=== PATIENT | male | born 1935 | race Caucasian/White ===

== ENCOUNTER → 2018-03-19 | Outpatient (CLI) | payer OTHER, MEDICARE | LOC: FIMAGING 12:16 | PROVIDERS: ATTEND Internal Medicine Cardiovascular Disease | DX: J90 Pleural effusion, not elsewhere classified (principal) ==

== ENCOUNTER → 2018-03-19 | Outpatient (CLI) | payer OTHER, MEDICARE | LOC: BHFA 11:30 | PROVIDERS: ATTEND Internal Medicine Cardiovascular Disease | DX: R55 Syncope and collapse (principal); I47.2 Ventricular tachycardia ==

== ENCOUNTER → 2018-03-20 | Outpatient (CLI) | payer OTHER, MEDICARE | LOC: BHFA 15:00 | PROVIDERS: ATTEND Internal Medicine Cardiovascular Disease | DX: R55 Syncope and collapse (principal); I42.9 Cardiomyopathy, unspecified ==

== ENCOUNTER 2018-03-25 07:47 | Emergency (ER) | payer OTHER, MEDICARE ==
--- NOTE | 2018-03-25 07:53 | EDPHY ---
H & P Time Seen by Provider: 03/25/18 07:49 HPI/ROS: CHIEF COMPLAINT: Dyspnea HISTORY OF PRESENT ILLNESS: The patient presents the ED with increasing dyspnea over the past several weeks. The patient reports he primarily notices dyspnea on exertion. He does have symptoms which occur at rest. This morning he was feeling short of breath and contacted paramedics. The patient was brought in by ambulance with stable vital signs. He has no complaints of chest pain. Patient tells me he does have a history of arrhythmia. He has a history of syncope and also an AICD. The patient does report an increasing cough over the past several days. He denies fever or productive sputum. The patient denies any headache, numbness or weakness. REVIEW OF SYSTEMS: A comprehensive 10 point review of systems is otherwise negative aside from elements mentioned in the history of present illness. 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 - hip fracture and hypercalcemia, ppm - Social History Smoking Status: Former smoker - Physical Exam Exam: General Appearance: Thin elderly male, no acute distress Eyes: Pupils equal and round no pallor or injection ENT, Mouth: Mucous membranes moist Respiratory: There are no retractions, lungs are clear to auscultation Cardiovascular: Regular rate and rhythm Gastrointestinal: Abdomen is soft and nontender, no masses, bowel sounds normal Neurological: 5/5 strength all 4 extremities Skin: Warm and dry, no rashes Extremities: symmetrical, full range of motion Psychiatric: Patient is oriented X 3, there is no agitation Constitutional: Initial Vital Signs Temperature (C) 37.0 C 03/25/18 08:01 Heart Rate 76 03/25/18 08:01 Respiratory Rate 18 03/25/18 08:01 Blood Pressure 137/96 H 03/25/18 08:01 O2 Sat (%) 97 03/25/18 08:01 O2 Delivery Mode Room Air Allergies/Adverse Reactions: No Known Allergies Allergy (Unverified 03/25/18 07:59) Home Medications: Medication Instructions Recorded Eliquis 03/25/18 Lasix 03/25/18 Metoprolol Succinate 03/25/18 POTASSIUM Cl (KCl) 03/25/18 Medical Decision Making - Diagnostics EKG Interpretation: EKG: Complete interpretation has been separately recorded in the [facility] archive. Summary impression: Sinus rhythm, rate 80, inferior Q-waves, IVCD Imaging Results: Imaging Impressions Chest X-Ray 03/25/18 07:59 Impression: Mild interstitial edema, small bilateral pleural effusions, and bibasilar atelectasis may be a manifestation of early/mild CHF versus manifestation of viral pneumonitis. Head CT 03/25/18 09:50 Impression: 1. Mild atrophy. 2. No acute hemorrhage, hydrocephalus, or mass effect. 3. Cerebrovascular atherosclerosis. 4. No definite acute infarct. 5. Moderate microvascular ischemic gliosis. 6. Consider MRI of the brain, if there is continued clinical concern. Findings and recommendations discussed with Emergency Department physician, Saurabh Sue at 10:40 hour, 03/25/2018. Final report concurs with initial preliminary interpretation. ED Course/Re-evaluation: ED course: I reviewed the patient's outpatient records including an echocardiogram from February 2018 which demonstrated an ejection fraction of 20-25% and evidence of diastolic dysfunction. The patient is currently on Eliquis and metoprolol. He does have a history of a documented atrial arrhythmia last month. The patient was seen by his integrated specialist on March 20 and started on Lasix and potassium supplementation. Additional history was obtained from the patient's [id number] who reports he has been quite confused since starting new medications. He reportedly was confused as to which medications he should take versus which medications he should be given to his dog. Patient does endorse some symptoms of increasing general confusion over the past several months. The patient denies any history of fall or trauma. He was recently anticoagulated for his arrhythmia. CT scan of the brain demonstrates no evidence of intracranial hemorrhage or mass. The patient was monitored in the emergency department for some time. He is stable hemodynamically. The patient was seen by case management. He is eligible for a increased level of care at his assisted living facility. They have made arrangements to put this into place. I do feel the patient is safe for discharge at this point time. It is reasonable to have him begin potassium and Lasix as recommended by his integrated specialist. The patient has been instructed to return to the ED for marked mental status changes, fever, progressive shortness of breath or other concerns. Patient's urinalysis demonstrates no evidence of an infection. Differential Diagnosis: Differential diagnosis considered includes congestive heart failure, dehydration , metabolic abnormality, occult arrhythmia, cardiomyopathy, urinary tract infection, pneumonia - Data Points Laboratory Results: Laboratory Results 03/25/18 08:40 03/25/18 08:40 03/25/18 03/25/18 03/25/18 10:41 08:40 08:40 WBC RBC Hgb Hct MCV MCH MCHC RDW Plt Count MPV Neut % (Auto) Lymph % (Auto) [place] % (Auto) Eos % (Auto) Baso % (Auto) Nucleat RBC Rel Count Absolute Neuts (auto) Absolute Lymphs (auto) Absolute Monos (auto) Absolute Eos (auto) Absolute Basos (auto) Absolute Nucleated RBC Immature Gran % Immature Gran # PT 17.0 SEC H SEC (12.0-15.0) INR 1.37 H (0.83-1.16) Sodium 142 mEq/L mEq/L (135-145) Potassium 4.5 mEq/L mEq/L (3.3-5.0) Chloride 110 mEq/L mEq/L (97-110) Carbon Dioxide 24 mEq/l mEq/l (22-31) Anion Gap 8 mEq/L mEq/L (6-14) BUN 22 mg/dL mg/dL (7-23) Creatinine 0.9 mg/dL mg/dL (0.7-1.3) Estimated GFR > 60 Glucose 101 mg/dL H mg/dL (70-100) Calcium 9.1 mg/dL mg/dL (8.5-10.4) Troponin I 0.041 ng/mL H ng/mL (0.000-0.034) NT-Pro-B Natriuret Pep 6650 pg/mL H pg/mL (0-450) Urine Color YELLOW Urine Appearance CLEAR Urine pH 5.0 (5.0-7.5) Ur Specific [place] 1.028 (1.002-1.030) Urine Protein 1+ H (NEGATIVE) Urine Ketones 1+ H (NEGATIVE) Urine Blood NEGATIVE (NEGATIVE) Urine Nitrate NEGATIVE (NEGATIVE) Urine Bilirubin NEGATIVE (NEGATIVE) Urine Urobilinogen NEGATIVE EU EU (0.2-1.0) Ur Leukocyte Esterase NEGATIVE (NEGATIVE) Urine RBC NONE SEEN /hpf /hpf (0-3) Urine WBC 1-3 /hpf /hpf (0-3) Ur Epithelial Cells NONE SEEN /lpf /lpf (NONE-1+) Urine Mucus 1+ /lpf /lpf (NONE-1+) Urine Glucose NEGATIVE (NEGATIVE) 03/25/18 08:40 WBC 9.89 10^3/uL H 10^3/uL (3.80-9.50) RBC 4.67 10^6/uL 10^6/uL (4.40-6.38) Hgb 14.4 g/dL g/dL (13.7-17.5) Hct 43.2 % % (40.0-51.0) MCV 92.5 fL fL (81.5-99.8) MCH 30.8 pg pg (27.9-34.1) MCHC 33.3 g/dL g/dL (32.4-36.7) RDW 13.7 % % (11.5-15.2) Plt Count 213 10^3/uL 10^3/uL (150-400) MPV 9.2 fL fL (8.7-11.7) Neut % (Auto) 80.8 % H % (39.3-74.2) Lymph % (Auto) 10.1 % L % (15.0-45.0) Waldo % (Auto) 7.6 % % (4.5-13.0) Eos % (Auto) 0.9 % % (0.6-7.6) Baso % (Auto) 0.3 % % (0.3-1.7) Nucleat RBC Rel Count 0.0 % % (0.0-0.2) Absolute Neuts (auto) 7.99 10^3/uL H 10^3/uL (1.70-6.50) Absolute Lymphs (auto) 1.00 10^3/uL 10^3/uL (1.00-3.00) Absolute Monos (auto) 0.75 10^3/uL 10^3/uL (0.30-0.80) Absolute Eos (auto) 0.09 10^3/uL 10^3/uL (0.03-0.40) Absolute Basos (auto) 0.03 10^3/uL 10^3/uL (0.02-0.10) Absolute Nucleated RBC 0.00 10^3/uL 10^3/uL (0-0.01) Immature Gran % 0.3 % % (0.0-1.1) Immature Gran # 0.03 10^3/uL 10^3/uL (0.00-0.10) PT INR Sodium Potassium Chloride Carbon Dioxide Anion Gap BUN Creatinine Estimated GFR Glucose Calcium Troponin I NT-Pro-B Natriuret Pep Urine Color Urine Appearance Urine pH Ur Specific [place] Urine Protein Urine Ketones Urine Blood Urine Nitrate Urine Bilirubin Urine Urobilinogen Ur Leukocyte Esterase Urine RBC Urine WBC Ur Epithelial Cells Urine Mucus Urine Glucose Departure - Departure Disposition: Home, Routine, Self-Care Clinical Impression: Dyspnea, Cardiomyopathy Condition: Good Instructions: Dyspnea (ED) Additional Instructions: 1. Please take medications as recommended by Dr. Mehta. 2. Please follow-up with your primary care provider as scheduled. 3. Please return to the emergency department for increased chest pain, shortness of breath, increasing confusion or other concerns. Referrals: Juan David Mehta MD [Medical Doctor] - As per Instructions
--- NOTE | 2018-03-25 08:57 | CPEKG ---
Test Reason : OPEN Blood Pressure : / mmHG Vent. Rate : 080 BPM Atrial Rate : 083 BPM P-R Int : 239 ms QRS Dur : 133 ms QT Int : 440 ms P-R-T Axes : -36 -69 067 degrees QTc Int : 508 ms Sinus rhythm Multiple premature complexes, vent & supraven Prolonged CT interval IVCD, consider atypical RBBB Inferior infarct, old Consider anterior infarct Confirmed by Saurabh Sue ([id number]) on 03/25/2018 8:57:12 AM Referred By: Confirmed By:Saurabh Sue
[2018-03-25 09:00] LABS: PLATELET COUNT 213 10^3/uL (150-400)
[2018-03-25 09:08] LABS: INR 1.37 (0.83-1.16)
--- NOTE | 2018-03-25 12:17 | ASMTCMCOM ---
CM Note CM Note Notes: PT im FED with increased shortness of breath over the last several weeks. He reported having several recent procedures which has created some confusion with medication management as well as feeling stable on his feet. Pt was seen at the request of ED MD Sue for possible in home health care services. Pt lives at [place] [facility] and he is accompanied by his sister-in law Damaris. This SW spoke with Maggi ([facility] of [facility]) who provided information for home health care services and coordinator Alexandra. This SW spoke with Alexandra ([phone]) and referral was sent through [facility]. Pt with be scheduled for a full evaluation for services. Damaris was provided with follow up phone number. Date Signed: 03/25/2018 12:16 PM Electronically Signed By:Murtaza Robledo LCSW
[2018-03-25 12:46] VITALS: BP 127/78
== END 2018-03-25 12:46 | disposition home or self-care (01) ==
LOC: EDUNIT# → EDBD
DX: R06.00 Dyspnea, unspecified (principal); I42.9 Cardiomyopathy, unspecified; R41.82 Altered mental status, unspecified; Z95.0 Presence of cardiac pacemaker; Z79.01 Long term (current) use of anticoagulants

== ENCOUNTER → 2018-04-08 | Outpatient (CLI) | payer OTHER, MEDICARE | LOC: BHFA 13:00 | PROVIDERS: ATTEND Internal Medicine Cardiovascular Disease | DX: R55 Syncope and collapse (principal) | CPT/HCPCS: 78452; 93017; A9500 ==

== ENCOUNTER → 2018-08-06 | Outpatient (CLI) | payer OTHER, MEDICARE | LOC: BHFA 14:00 | PROVIDERS: ATTEND Internal Medicine Cardiovascular Disease | DX: I48.91 Unspecified atrial fibrillation (principal); I50.22 Chronic systolic (congestive) heart failure ==